=== PATIENT | female | born 1980 | race Caucasian/White ===

== ENCOUNTER → 2024-01-12 10:58 | Outpatient (REF) | payer BC, SELFPAY | LOC: HWRCS 10:58 | PROVIDERS: ATTENDING PHYSICIAN Internal Medicine | DX: R00.2 Palpitations (principal) | CPT/HCPCS: 93306 ==

== ENCOUNTER 2025-02-06 09:17 | Emergency (ER) | payer OTHER, SELFPAY ==
[2025-02-06 09:23] VITALS: BP 140/87
[2025-02-06 10:00] VITALS: BP 141/76
[2025-02-06 10:03] VITALS: BMI 25.8
[2025-02-06 10:25] LABS: % Basophils 0.3 % (0-2); % Immature Granulocytes 0.3 % (0-0.5); % Monocytes 5.3 % (1.7-9.3); % Neutrophils 77.1 % (42.2-75.2); Absolute Lymphocytes 1.3 10^3/uL (1.2-3.4); Absolute Monocytes 0.4 10^3/uL (0.1-0.6); Absolute Neutrophils 5.9 10^3/uL (1.4-6.5); Hemoglobin 14.4 g/dL (12.0-16.0); Mean Corp Hgb Conc. 35.1 g/dL (33.0-37.0); Mean Corpuscular Hgb 26.1 pg (27.0-31.0); Mean Corpuscular Volume 74.4 fL (81.0-99.0); Mean Platelet Volume 10.5 fL (7.4-10.4); Nucleated Red Blood Cells % 0 %; Platelet Count 207 10^3/uL (130-400); Red Blood Cell Count 5.51 10^6/uL (4.20-5.40); Red Cell Dist. Width 13.2 % (11.5-14.5); White Blood Cell Count 7.6 10^3/uL (4.8-10.8)
[2025-02-06 10:28] LABS: Urine Albumin Negative (Neg - Trace); Urine Bilirubin Negative (Negative); Urine Character Clear (Clear); Urine Glucose Negative (Negative); Urine Ketone 1+ (Negative); Urine Leukocyte Negative (Negative); Urine Nitrite Negative (Negative); Urine Occult Blood Negative (Negative); Urine Urobilinogen Negative (Neg - 1+)
[2025-02-06 10:31] LABS: Urine Color Straw
[2025-02-06 10:36] LABS: HCG, Serum Qualitative Screen Negative
[2025-02-06 10:38] LABS: ALT (SGPT) 21 U/L (0-35); AST (SGOT) 23 U/L (14-36); Albumin 4.6 g/dl (3.5-5.0); Alkaline Phosphatase 73 U/L (38-126); Blood Urea Nitrogen 9 mg/dl (7-17); Calcium 10.1 mg/dl (8.4-10.2); Carbon Dioxide 26 mmol/L (22-30); Chloride 105 mmol/L (98-107); Estimated Creatinine Clearance 91 ml/min; Glucose 125 mg/dl (70-99); Potassium 3.5 mmol/L (3.5-5.1); Sodium 137 mmol/L (135-145); Total Bilirubin 0.8 mg/dl (0.2-1.3); eGFR > 60.00
--- NOTE | 2025-02-06 10:44 | ED.GENMED ---
History of Present Illness
General
Chief Complaint: Heart Rate Problem
Source: patient
Exam Limitations: none
Time Seen by Provider: 02/06/25 10:00
Nursing documentation reviewed up to this point in time: agreed with
History of Present Illness
History of Present Illness:
44 y/o F with h/o anxiety
here with palpitations felt as fast HR since last night
pt says 2 days ago she started with lower abd pain/pressure/urgency/frequency of urination, which felt simila rto previous UTI
took home test which was pos for LE but not nitrite
she called [facility] telehealth who called in bactrim for her which she took 2 doses of
she has taken bactrim before without problems
pt says last night around midnight she was upset about her son doing homework and after that she felt her heart racing; she thinks it was around 130
she never really slept well because of it
it did improve to low 100s when she checked pulse ox this morning but still was fast so she wanted to come in
she has not had fever, chills, chest pain, shortness of breath, passing out, vomiting,
pt saw darrickdarrinman previously for palpiations/pacs but never got work upbecause they resolved by the time she saw him\\
Past History
Past History
ED Past Medical History: None
ED Past Surgical History: None
Phy Exam
Physical Exam
Physical Exam:
GENERAL: Alert , in no apparent distress mildly anxious, very pleasant
EYE: pupils equal and reactive
NECK: Supple
ENT: o/p clr, mmm.
CARDIAC: Tachycardic, low 100s, no edema mildly anxious
LUNGS: Clear breath sounds bilaterally, no acute respiratory distress, no wheezes/rales/rhonchi
ABDOMEN: Soft, mild suprapubic tenderness; no r/g, no cvat, normal bowel sounds
no back tenderness
NEUROLOGICAL: Alert and oriented, no focal neuro deficits
SKIN: Warm and dry, skin intact.
MUSCULOSKELETAL: No edema, well perfused. neg yifan's sign
PSYCH: Normal and appropriate interaction.
Course
Orders/Labs/Results
Orders:
Orders
02/06/25 09:19
Electrocardiogram (*1) Urgent
Reason for Study: Chest Pain
EKG- Treatment ONCE
02/06/25 09:50
Test Result ONCE
02/06/25 10:11
Complete Blood Count/With Diff Urgent
Comprehensive Metabolic Panel Urgent
HCG, Serum Qualitative Screen Urgent
Magnesium Urgent
TSH Reflex To Free T4 Urgent
02/06/25 10:20
Urinalysis Reflex To Culture Urgent
Date Specimen was Collected: 02/06/25
Time Specimen was Collected: 10:19
02/06/25 10:29
Add On- LAB Urgent
Tests Added?: magnesium
0.9% Sodium Chloride 1000 ml [Nss] 1,000 ml IV BOLUS
02/06/25 10:43
Acetaminophen [Tylenol] 650 mg PO NOW STA
02/06/25 10:59
D-Dimer Urgent
Troponin I Urgent
Abnormal Lab Results
02/06/25 02/06/25
10:11 10:20
RBC 5.51 H 10^6/uL
(4.20-5.40)
MCV 74.4 L fL
(81.0-99.0)
MCH 26.1 L pg
(27.0-31.0)
MPV 10.5 H fL
(7.4-10.4)
Neutrophils % 77.1 H %
(42.2-75.2)
Lymphocytes % 17.0 L %
(20.5-51.1)
Glucose 125 H mg/dl
(70-99)
Urine Ketones 1+ A
(Negative)
02/06/25 10:11
02/06/25 10:11
Vital Signs
Initial and Last Documented VS:
Initial Vital Signs
Temp Pulse Resp BP Pulse Ox
36.7 C 106 16 140/87 100
02/06/25 09:23 02/06/25 09:23 02/06/25 09:23 02/06/25 09:23 02/06/25 09:23
Last Documented Vital Signs
Temp Pulse Resp BP Pulse Ox
36.7 C 103 14 112/76 100
02/06/25 09:23 02/06/25 13:00 02/06/25 13:00 02/06/25 13:00 02/06/25 13:00
MDM/Problems Addressed
Differential Diagnosis Includes:
dehydration, sepsis/infectoin, pain, anxiety, PE
MDM/Problems Addressed:
44 y/o F
h/o utis occasionally
had sypmtoms 2 days ago lower abd pain
1 sex partner, no concern for STI
did home deipstick pos LE
called telehealth and started bactrim, had 2 doses
something upset her last night and since then her HR has been elevated > 100
better this am than last night
no sob, syncope, vomiting
she is able to void (PVR 24 ml)
minimal lower suprapubic tendenress
no fever
multiple checks of temp
wbc normla
eeldcatorlytes normal
ekg has a subtle st seg abnormality likely rate erelated
trop neg
d dimer neg
ua ketones only
unliekyl to be reaction from bactrim since she has had it before
bactrim ould be the reason her UA looks neg;
to be safe will switch to keflex
inc po fluids
f/u cristi, pt has already seen as otupatient
suspect some anxiety
d/w dr joya.
*Critical Care Note
Total Time (30-74mins, 75-104mins- exclusive of procedures): Not Applicable
ED Attending Note
-
Portions of this chart may have been created with voice recognition software.� Occasional wrong word or��sound alike� substitutions may have occurred due to the inherent limitations of voice recognition software.
Discharge Plan
Departure
Patient Disposition: Home (Routine Discharge)
Date of Disposition: 02/06/25
Time of Disposition: 13:00
Patient with high blood pressure during this ER visit?: No
Condition: Fair
Covid-19: Not Applicable
Discharge Problem:
Dehydration, Palpitations
Instructions: Palpitations (DC), Dehydration in adults - ED discharge instructions
Prescriptions:
New
cephalexin 500 mg capsule
500 mg PO BID Qty: 10 0RF
Referrals:
Naman Hammond MD [Active] - Follow up in 5-7 days
Jonathan Fraga MD [Family Provider] - Follow up in 2-3 days
Activity Restrictions/Additional Instructions:
WE ARE NOT SURE THE CAUSE OF YOUR ELEVATED HEART RATE BUT IT COULD BE MILD DEHYDRATION
YOUR URINE DID NOT OTHERWISE SHOW SIGNIFICANT INFECTION
YOU CAN STOP THE BACTRIM AND INSTEAD SWITCH TO KEFLEX TWICE A DAY FOR 5 DAYS
DRINK PLENTY OF FLUIDS
CALL DR. DELONG'S OFFICE FOR AN APOINTMENT FOR FOLLOW UP
RETURN FOR: ELEVATED HR HIGHER THAN 130, PERSISTENT ELEVATION, PASSING OUT, SEVERE PAIN OR ANY CONCERNS.
Interventions
Interventions:
*Risk Screen - Suicide Last Done: 02/06/25 10:04
*General Assessment Last Done: 02/06/25 10:04
*ED- Fall Risk Assessment Last Done: 02/06/25 10:04
*ED COVID-19 Vaccine History Last Done: 02/06/25 10:04
*Nursing Disposition Last Done: 02/06/25 13:37
ED- Cardiac Assessment Last Done: 02/06/25 10:04
ED- Pulmonary Assessment Last Done: 02/06/25 10:04
Discharge Date and Time
Discharge Date/Time: 02/06/25 13:39
Print Language: NIUEAN
[2025-02-06 10:54] LABS: Magnesium 2.1 mg/dl (1.6-2.3)
[2025-02-06 11:08] LABS: TSH Reflex To Free T4 2.95 uIU/ml (0.47-4.68)
[2025-02-06 11:09] VITALS: BP 125/79
[2025-02-06] MEDS: TYLENOL 650 MG PO (11:13)
[2025-02-06] MEDS: NSS 1000 IV (11:14)
[2025-02-06 11:23] LABS: D-Dimer < 0.27 ug/mlFEU (0.00-0.50)
[2025-02-06 12:00] VITALS: BP 122/70
[2025-02-06 12:01] LABS: Troponin I < 0.012 ng/ml
[2025-02-06 13:00] VITALS: BP 112/76
== END 2025-02-06 13:39 | disposition home or self-care (01) ==
LOC: EMR 09:17
PROVIDERS: Physician Assistant; EMERGENCY PHYSICIAN Emergency Medicine; FAMILY PHYSICIAN Internal Medicine Geriatric Medicine
DX: E86.0 Dehydration (principal); R00.2 Palpitations
CPT/HCPCS: 99284; 96360; 80053; 81003; 83735; 84443; 84484; 84703; 85025; 85379; 93005

== ENCOUNTER → 2025-02-12 12:51 | Outpatient (REF) | payer OTHER, SELFPAY | LOC: RCS 12:51 | PROVIDERS: ATTENDING PHYSICIAN Nurse Practitioner Family; FAMILY PHYSICIAN Internal Medicine Geriatric Medicine | DX: R00.0 Tachycardia, unspecified (principal); R00.2 Palpitations; R71.8 Other abnormality of red blood cells | CPT/HCPCS: 93225; 93226 ==